=== PATIENT | male | born 1940 ===

== ENCOUNTER 2017-06-03 09:13 | Emergency (ER) | payer MEDICARE ==
[2017-06-03 09:17] VITALS: O2SAT 98
--- NOTE | 2017-06-03 09:44 | C.PDOC ---
History Of Present Illness 77 year old male accompanied by is brought by EMS for evaluation of headache, dizziness, nausea, vomit, and abdominal pain. As per patient was seen at [place] [facility] 3 weeks ago for similar symptoms, he had a CT scan of the head done while in the ED and was prescribed Tramadol to help with the headaches. Patient states headaches usually will be on coming and going but the past 5 days have been worse and constant he reports now the back of his head hurts. Patient denies CP, SOB ,blurry vision, numbness, weakness, decreases motor or sensation in extremities. Time Seen by Provider: 06/03/17 09:27 Chief Complaint (Nursing): Dizziness/Lightheaded History Per: Patient History/Exam Limitations: no limitations Onset/Duration Of Symptoms: Days Current Symptoms Are (Timing): Still Present Associated Symptoms Preceding Syncopal Episode: Lightheadedness Fall Associated With With Symptoms: No Severity: None Recent travel outside of the [place]: No Additional History Per: Patient Past Medical History Reviewed: Historical Data, Nursing Documentation, Vital Signs Vital Signs: Last Vital Signs Temp 97.7 F 06/03/17 09:15 Pulse 60 06/03/17 11:06 Resp 17 06/03/17 11:06 BP 174/79 H 06/03/17 11:06 Pulse Ox 98 06/03/17 11:06 - Medical History PMH: Dementia, HTN Surgical History: No Surg Hx Family History: States: Unknown Family Hx - Social History Hx Alcohol Use: No Hx Substance Use: No Review Of Systems Constitutional: Negative for: Fever, Chills Cardiovascular: Negative for: Chest Pain Respiratory: Negative for: Shortness of Breath Gastrointestinal: Positive for: Nausea, Vomiting. Negative for: Abdominal Pain Musculoskeletal: Positive for: Neck Pain. Negative for: Back Pain Skin: Negative for: Rash Neurological: Positive for: Headache, Dizziness. Negative for: Weakness, Numbness Physical Exam - Physical Exam Appears: Non-toxic, No Acute Distress Skin: Normal Color, Warm, Dry Head: Atraumatic, Normacephalic Nose: No Discharge, No Deformity Oral Mucosa: Moist Neck: Normal ROM, Supple Chest: Symmetrical Cardiovascular: Rhythm Regular, No Murmur Respiratory: Normal Breath Sounds, No Rales, No Rhonchi, No Wheezing Gastrointestinal/Abdominal: Soft, No Tenderness Extremity: Normal ROM, No Pedal Edema, No Calf Tenderness, No Swelling Neurological/Psych: Oriented x3, Normal Speech, Normal Cognition, Normal Motor, Normal Sensation Gait: Steady ED Course And Treatment - Laboratory Results Result Diagrams: 06/03/17 09:53 06/03/17 09:53 O2 Sat by Pulse Oximetry: 98 (On RA) Pulse Ox Interpretation: Normal - CT Scan/US CT head Other Rad Studies (CT/US): Interpreted By Me, Read By Radiologist, Radiology Report Reviewed CT/US Interpretation: PROCEDURE: CT HEAD WITHOUT CONTRAST. HISTORY: headache. COMPARISON: No prior study available for comparison. TECHNIQUE: Axial computed tomography images were obtained through the head/brain without intravenous contrast. Radiation dose: Total exam DLP = 837.28 mGy-cm. This CT exam was performed using one or more of the following dose reduction techniques: Automated exposure control, adjustment of the mA and/or kV according to patient size, and/or use of iterative reconstruction technique. FINDINGS: HEMORRHAGE: No acute parenchymal, subarachnoid nor extra-axial hemorrhage. 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 Additionally, there arm very mild diffuse/confluent chronic white matter ischemic changes as well. No evidence of large acute infarct so far as can be seen. . Moderate central volume loss. Mild vascular calcifications both carotid siphons. VENTRICLES: No obstructive hydrocephalus. CALVARIUM: No fractures. PARANASAL SINUSES: Mild mucosal thickening seen within the ethmoid air complex extending slightly superiorly into the inferior margin of the frontal sinus. . MASTOID AIR CELLS: Unremarkable as visualized. No inflammatory changes. OTHER FINDINGS: None. IMPRESSION: No acute intracranial hemorrhage. Localized chronic right anterior basal ganglia and adjacent periventricular white matter ischemic changes. Mild diffuse/confluent chronic periventricular white matter ischemic changes are also present. Moderate central volume loss. Mild mucoperiosteal inflammatory changes seen within the ethmoid air complex extending slightly into the inferior margin of the frontal sinus. Medical Decision Making Medical Decision Making: Impression : headache, dizziness Plan: * Blood work * CT head Disposition Doctor Will See Patient In The: Office - Disposition Disposition: HOME/ ROUTINE Disposition Time: 13:10 Additional Instructions: Follow up with your appointments as scheduled. Forms: [employer] (Georgian) - Clinical Impression Clinical Impression: Headache - Scribe Statement The provider has reviewed the documentation as recorded by the Marinaibse Dominguez All medical record entries made by the Scribe were at my direction and personally dictated by me. I have reviewed the chart and agree that the record accurately reflects my personal performance of the history, physical exam, medical decision making, and the department course for this patient. I have also personally directed, reviewed, and agree with the discharge instructions and disposition.
[2017-06-03 09:57] LABS: BASO % 0.4 % (0.0-2.0); EOS # 0.2 K/uL (0.0-0.7); EOS % 2.2 % (0.0-4.0); HEMATOCRIT 39.7 % (35.0-51.0); LYMPH # 1.4 K/uL (1.0-4.3); LYMPH % 20.2 % (20.0-40.0); MEAN CELL VOLUME 83.2 fL (80.0-94.0); MEAN CORPUSCULAR HEMOGLOBIN 28.5 pg (27.0-31.0); MEAN CORPUSCULAR HGB CONC 34.3 g/dL (33.0-37.0); MEAN PLATELET VOLUME 9.5 fL (7.2-11.7); MONO # 0.5 K/uL (0.0-0.8); NRBC % 0.1 % (0.0-2.0); RED CELL DISTRIBUTION WIDTH 13.2 % (11.5-14.5); WHITE BLOOD COUNT 6.9 K/uL (4.8-10.8)
[2017-06-03 10:16] LABS: ALB/GLOB RATIO 1.4 (1.0-2.1); ALKALINE PHOSPHATASE 65 U/L (38-126); ALT/SGPT 37 U/L (21-72); AST/SGOT 20 U/L (17-59); BILIRUBIN,TOTAL 0.8 mg/dL (0.2-1.3); BLOOD UREA NITROGEN 11 mg/dL (9-20); CALCIUM 8.3 mg/dl (8.6-10.4); CARBON DIOXIDE 30 mmol/L (22-30); CHLORIDE 100 mmol/L (98-107); GFR AFRICAN-AMERICAN > 60; GLUCOSE,RANDOM 185 mg/dL (75-110); POTASSIUM 3.7 mmol/L (3.6-5.2); SODIUM 137 mmol/L (132-148); TOTAL PROTEIN 6.8 g/dL (6.3-8.3)
--- NOTE | 2017-06-03 10:25 | CT ---
PROCEDURE: CT HEAD WITHOUT CONTRAST. HISTORY: headache COMPARISON: No prior study available for comparison TECHNIQUE: Axial computed tomography images were obtained through the head/brain without intravenous contrast. Radiation dose: Total exam DLP = 837.28 mGy-cm. This CT exam was performed using one or more of the following dose reduction techniques: Automated exposure control, adjustment of the mA and/or kV according to patient size, and/or use of iterative reconstruction technique. FINDINGS: HEMORRHAGE: No acute parenchymal, subarachnoid nor extra-axial hemorrhage. 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 Additionally, there arm very mild diffuse/confluent chronic white matter ischemic changes as well. No evidence of large acute infarct so far as can be seen. . Moderate central volume loss. Mild vascular calcifications both carotid siphons. VENTRICLES: No obstructive hydrocephalus. CALVARIUM: No fractures. PARANASAL SINUSES: Mild mucosal thickening seen within the ethmoid air complex extending slightly superiorly into the inferior margin of the frontal sinus. . MASTOID AIR CELLS: Unremarkable as visualized. No inflammatory changes. OTHER FINDINGS: None. IMPRESSION: No acute intracranial hemorrhage. Localized chronic right anterior basal ganglia and adjacent periventricular white matter ischemic changes. Mild diffuse/confluent chronic periventricular white matter ischemic changes are also present. Moderate central volume loss. Mild mucoperiosteal inflammatory changes seen within the ethmoid air complex extending slightly into the inferior margin of the frontal sinus.
[2017-06-03 13:16] VITALS: BP 176/80; PULSE 88; RESP 18; TEMP 98.8
== END 2017-06-03 13:26 | disposition home or self-care (01) ==
LOC: C.ER 09:13
DX: R51 Headache (principal); I10 Essential (primary) hypertension; Z87.891 Personal history of nicotine dependence